=== PATIENT | female | born 1940 | race Caucasian/White ===

== ENCOUNTER → 2019-01-28 | Outpatient (CLI) | payer MEDICARE, OTHER ==
--- NOTE | 2019-01-28 13:53 | RAD ---
AP standing upright views of both knees Clinical indications: Right knee pain. Black's cyst. FINDINGS: There is a nondisplaced fracture of the medial corner of the medial tibial plateau of the right knee. No dislocation or lytic process is evident. Total left knee arthroplasty is evident which is well aligned in this AP projection. IMPRESSION: Nondisplaced medial tibial plateau fracture of the right knee. Electronically signed by: Nemesio Zayas MD (01/28/2019 1:50 PM) [id number]
== END | disposition home or self-care (01) ==
LOC: RAD 10:55
PROVIDERS: ATTEND Orthopaedic Surgery
DX: S82.144A Nondisplaced bicondylar fracture of right tibia, initial encounter for closed fracture (principal); M71.21 Synovial cyst of popliteal space [Baker], right knee; Z96.652 Presence of left artificial knee joint; X58.XXXA Exposure to other specified factors, initial encounter; Y93.89 Activity, other specified; Y92.89 Other specified places as the place of occurrence of the external cause; Y99.8 Other external cause status
CPT/HCPCS: 73565

== ENCOUNTER → 2019-08-30 | Outpatient (CLI) | payer MEDICARE, OTHER ==
[~2019-08-30] MED LIST: ASCO-78 PO; ASPI-482 PO; ATOR20TA PO; CA C1TAB28 PO; CALC500T30 PO; CELE400C PO; CETI10TA24 PO; CHOL100014 PO; CRESTOR20 MG PO; CYAN100070 PO; ENAL20TA PO; FENO160T PO; FISH1CAP PO; GLUC1TAB71 PO; HYDR-2761 PO; LEVO88TA4 PO; MONT10TA49 PO; NAPR220C4 PO; OLOP5DRO13 OU; OMEP40CA45 PO; OXYB5TAB10 PO; TOLT4CAP PO; WARF-78 PO; [UNRECOGNIZED DRUG - OTHER] PO
[2019-08-30 09:37] LABS: BILIRUBIN,URINE NEGATIVE (NEG); CLARITY,URINE CLEAR; COLOR,URINE YELLOW; NITRITE,URINE NEGATIVE (NEG); PH,URINE 5.5 (<5.0-8.0); PROTEIN,URINE NEGATIVE (NEG-TRACE); UROBILINOGEN,URINE 0.2 mg/dL (0.2 mg/dL)
[2019-08-30 10:02] LABS: BASO % 1 % (0-3); EOS # 0.1 x10^3/uL (0.0-0.7); EOS % 1 % (0-3); HEMATOCRIT 39.2 % (36.0-47.0); HEMOGLOBIN 13.2 g/dL (12.0-15.5); LYMPH # 0.8 x10^3/uL (1.0-4.8); LYMPH % 17 % (24-48); MEAN CORPUSCULAR HEMOGLOBIN 29 pg (25-35); MEAN CORPUSCULAR HGB CONC 34 g/dL (31-37); MEAN CORPUSCULAR VOLUME 87 fL (79-100); MONO # 0.3 x10^3/uL (0.0-1.1); MONO % 7 % (0-9); NEUT # 3.6 x10^3/uL (1.8-7.7); NEUT % 74 % (31-73); PLATELET COUNT 319 x10^3/uL (140-400); RED BLOOD COUNT 4.53 x10^6/uL (3.50-5.40); RED CELL DISTRIBUTION WIDTH 13.2 % (11.5-14.5); WHITE BLOOD COUNT 4.8 x10^3/uL (4.0-11.0)
[2019-08-30 10:09] LABS: PROTHROMBIN TIME PATIENT 12.1 SEC (11.7-14.0)
[2019-08-30 10:13] LABS: RBC,URINE 0 /HPF (0-2)
[2019-08-30 10:14] LABS: BACTERIA,URINE 0 /HPF (0-FEW); SQUAMOUS EPITHELIAL CELL,UR FEW /LPF; WBC,URINE 0 /HPF (0-4)
[2019-08-30 10:21] LABS: ALBUMIN 3.9 g/dL (3.4-5.0); CALCIUM 9.3 mg/dL (8.5-10.1); CREATININE 0.7 mg/dL (0.6-1.0); GFR 80.7; POTASSIUM 4.4 mmol/L (3.5-5.1)
--- NOTE | 2019-08-30 11:53 | EKG ---
[facility] [address] [place] [address] Test Date: 2019-08-30 Test Time: 11:50:02 Pat Name: ZANDRA HUI Department: Room: Gender: F Otolaryngology Surgeon: S[place] : 1940 Requested By: FRANCOIS STERLING Order Number: [id number] Reading MD: David De Luna Measurements Intervals [place] Rate: 72 P: 56 [place]: 180 QRS: 49 QRSD: 136 T: 44 QT: 408 QTc: 448 Interpretive Statements SINUS RHYTHM RIGHT BUNDLE BRANCH BLOCK MILD NONSPECIFIC ST-T WAVE CHANGES. Electronically Signed On 09-01-2019 10:39:57 CDT by David De Luna
--- NOTE | 2019-08-30 16:14 | RAD ---
EXAM: Chest, 2 views. HISTORY: Preoperative evaluation. Hyperlipidemia. COMPARISON: None. FINDINGS: 2 views of the chest are obtained. There is no infiltrate, pleural effusion or pneumothorax. The heart is normal in size. There are calcified granulomas. There are surgical anchors within the right humeral head. IMPRESSION: No acute pulmonary finding. Electronically signed by: Domonique Beal MD (08/30/2019 4:11 PM) [id number]
[2019-08-31 00:07] LABS: HEMOGLOBIN A1C 5.3 % (4.8-5.6)
== END | disposition home or self-care (01) ==
LOC: SURGPAT 10:00
PROVIDERS: ATTEND Orthopaedic Surgery
DX: Z01.818 Encounter for other preprocedural examination (principal); M17.11 Unilateral primary osteoarthritis, right knee; I45.19 Other right bundle-branch block
CPT/HCPCS: 36415; 71046; 80048; 81001; 82040; 82306; 83036; 85025; 85610; 85651; 85730; 87641; 93005

== ENCOUNTER → 2019-11-26 | Outpatient (CLI) | payer MEDICARE, OTHER ==
[~2019-11-26] MED LIST changes: +TRAM50TA PO; -WARF-78 PO; +WARF5TAB2 PO
[2019-11-26 15:42] LABS: BASO % 1 % (0-3); EOS # 0.1 x10^3/uL (0.0-0.7); EOS % 2 % (0-3); HEMOGLOBIN 11.9 g/dL (12.0-15.5); LYMPH # 0.9 x10^3/uL (1.0-4.8); LYMPH % 16 % (24-48); MEAN CORPUSCULAR HEMOGLOBIN 29 pg (25-35); MEAN CORPUSCULAR HGB CONC 34 g/dL (31-37); MEAN CORPUSCULAR VOLUME 84 fL (79-100); MONO # 0.4 x10^3/uL (0.0-1.1); MONO % 8 % (0-9); NEUT # 4.1 x10^3/uL (1.8-7.7); NEUT % 74 % (31-73); PLATELET COUNT 274 x10^3/uL (140-400); RED BLOOD COUNT 4.16 x10^6/uL (3.50-5.40); RED CELL DISTRIBUTION WIDTH 13.4 % (11.5-14.5); WHITE BLOOD COUNT 5.5 x10^3/uL (4.0-11.0)
[2019-11-26 15:49] LABS: PROTHROMBIN TIME PATIENT 13.3 SEC (11.7-14.0)
[2019-11-26 15:52] LABS: ALBUMIN 3.5 g/dL (3.4-5.0); C-REACTIVE PROTEIN 0.6 mg/L (0-3.3); CALCIUM 8.8 mg/dL (8.5-10.1); CREATININE 0.8 mg/dL (0.6-1.0); GFR 69.2; POTASSIUM 4.4 mmol/L (3.5-5.1)
[2019-11-27 02:08] LABS: HEMOGLOBIN A1C 5.5 % (4.8-5.6)
== END | disposition home or self-care (01) ==
LOC: SURGPAT 14:32
PROVIDERS: ATTEND Orthopaedic Surgery
DX: Z01.818 Encounter for other preprocedural examination (principal); Z11.59 Encounter for screening for other viral diseases; M17.11 Unilateral primary osteoarthritis, right knee; Z88.0 Allergy status to penicillin; Z91.040 Latex allergy status; Z91.048 Other nonmedicinal substance allergy status; Z79.899 Other long term (current) drug therapy
CPT/HCPCS: 36415; 80048; 82040; 82306; 83036; 85025; 85610; 85730; 86140; U0003